=== PATIENT | female | born 1970 | race Caucasian/White ===

== ENCOUNTER 2019-02-14 11:08 | Outpatient (CLI) | payer BC | END 2019-02-14 21:09 | disposition home or self-care (01) | LOC: SMA 11:08 | PROVIDERS: ATTEND Obstetrics & Gynecology | DX: Z12.31 Encounter for screening mammogram for malignant neoplasm of breast (principal) | CPT/HCPCS: 77067 ==

== ENCOUNTER 2020-12-03 09:34 | Day surgery (SDC) | payer OTHER, SELFPAY ==
[~2020-12-03] VITALS: Ht 149.9 cm; Wt 47.2 kg
[2020-12-03 10:40] LABS: HCG,QUAL RESULT NEGATIVE (NEGATIVE)
[2020-12-03] MEDS ORDERED: ONDANSETRON HCL 4 MG/2 ML VIAL IVP ONE (11:27)
[2020-12-03] MEDS ORDERED: fentaNYL CITRATE/PF 100 MCG/2 ML AMP IVP ONE (11:27)
[2020-12-03] MEDS ORDERED: MIDAZOLAM HCL 5 MG/5 ML VIAL IVP ONE (11:27)
[2020-12-03] MEDS ORDERED: NS IRRIG SOLN 1000 ML IR ONE (11:27)
[2020-12-03] MEDS ORDERED: PROPOFOL 200MG/ 20ML VIAL (DIPRIVAN) IV ONE (11:27)
[2020-12-03] MEDS ORDERED: SEVOFLURANE 15 MIN GAS INH ONE (11:27)
[2020-12-03] MEDS ORDERED: LR 1,000 ML IV.SOLN IV ONE (11:27)
[2020-12-03] MEDS ORDERED: KETOROLAC TROMETHAMINE 30 MG VIAL IVP PRN (12:00)
[2020-12-03] MEDS ORDERED: ACETAMINOPHEN 500 MG TABLET PO ONE (12:00)
[2020-12-03] MEDS ORDERED: METOCLOPRAMIDE HCL 10 MG/2 ML VIAL IVP PRN (12:00)
[2020-12-03] MEDS ORDERED: HYDROmorphone 1 MG/ML INJ. CARTRIDGE IVP PRN (12:00)
[2020-12-03] MEDS ORDERED: HYDROmorphone 1 MG/ML INJ. CARTRIDGE ONE (12:50)
[2020-12-03 15:12] VITALS: BP_SYST 129
== END 2020-12-03 14:40 | disposition home or self-care (01) ==
LOC: SDS 09:34 → SMU 09:37 → EDSTATUS 11:00 → SDS 14:40
PROVIDERS: ATTEND Obstetrics & Gynecology
DX: N95.0 Postmenopausal bleeding (principal); F41.9 Anxiety disorder, unspecified; Z90.89 Acquired absence of other organs; Z79.899 Other long term (current) drug therapy
CPT/HCPCS: 36415 ×2; 58558; 84703; 86886; 86900; 86901; 87426; 88305; J1170; J7120; J2250; J2405; J2704; J3010

== ENCOUNTER 2023-05-28 11:39 | Emergency (ER) | payer OTHER ==
[~2023-05-28] VITALS: Ht 152.4 cm; Wt 47.6 kg
[2023-05-28 12:30] LABS: BASOPHILS % (AUTO) 0.7 % (0.0-2.0); EOSINOPHILS # (AUTO) 0.1 K/uL (0.0-0.4); EOSINOPHILS % (AUTO) 2.2 % (0.0-4.0); HEMATOCRIT 41.3 % (36-48); HEMOGLOBIN 13.3 g/dL (12.0-16.0); LYMPHOCYTES # (AUTO) 1.6 K/uL (1.0-5.5); LYMPHOCYTES % (AUTO) 28.6 % (20.5-51.5); MEAN CORPUSCULAR HEMOGLOBIN 29 pg (27-31); MEAN CORPUSCULAR HGB CONC 32 % (32-36); MEAN CORPUSCULAR VOLUME 90 fL (79.0-98.0); MONOCYTES # (AUTO) 0.2 K/uL (0.0-1.0); MONOCYTES % (AUTO) 3.8 % (1.7-9.3); NEUTROPHILS # (AUTO) 3.7 K/uL (1.8-7.7); NEUTROPHILS % (AUTO) 64.7 % (40.0-70.0); PLATELET COUNT (AUTO) 335 K/uL (130-430); RED CELL DISTRIBUTION WIDTH 13.9 % (9.0-15.0); WHITE BLOOD COUNT (AUTO) 5.6 K/uL (4.8-10.8)
[2023-05-28 12:35] LABS: PROTHROMBIN TIME 9.9 SECS (9.5-12.5)
[2023-05-28 12:37] LABS: CALCIUM 9.8 mg/dL (8.4-11.0); CREATININE 0.72 mg/dL (0.55-1.30); POTASSIUM 4.1 mmol/L (3.5-5.1)
[2023-05-28 12:41] LABS: TOTAL BILIRUBIN 0.3 mg/dL (0.0-1.0); TOTAL PROTEIN, SERUM 8.2 g/dL (6.4-8.3)
[2023-05-28 13:00] VITALS: BP_SYST 151; PULSE 109; RESP 18; TEMP 98.1; O2SAT 99
[2023-05-28 14:21] VITALS: BP_SYST 151; PULSE 109; RESP 18; TEMP 98.1; O2SAT 99
== END 2023-05-28 14:20 | disposition home or self-care (01) ==
LOC: SED 11:39
DX: K62.5 Hemorrhage of anus and rectum (principal); R10.32 Left lower quadrant pain; Z79.899 Other long term (current) drug therapy
CPT/HCPCS: 36415; 76376; 80053; 82150; 83605; 83690; 85025; 85610-TC; 85730-TC; 86886; 86900; 86901; 99284